=== PATIENT | female | born 1960 | race Two or more races ===

== ENCOUNTER 2024-04-29 14:48 | Outpatient (AMB) | payer OTHER, SELFPAY ==
--- NOTE | 2024-04-29 14:56 | MHC.OFFVIS ---
Vital Signs 04/29/24 15:11 Height 5 ft 4 in Weight 169 lb 12.095 oz BMI 29.1 BP 158/70 H Blood Pressure Location Rt brachial Position Sitting Pulse 86 Pulse Source Pulse Oximeter Pulse Oximetry (%) 99 Oxygen Delivery Method Room Air Intake Visit Reasons: Positive Cologuard-colonoscopy screening Intake Note: Relevant Flags or Indicators ? Requires Mold Technician? Luca Kearney presents in office today for a scheduled initial assessment. CC; Since last visit; labs ordered ? within the last ~2 mos via [facility]. Rx ordered ? no. Diagnostics/images ordered ? done (Cologuard, positive, in chart). Cardiovascular US within the last 3-4 mos per pt. Pt also reports kidney bx and thyroid bx. Pt also reports hx of iron infusions for anemia. Relevant GI Sx as reported per pt? ?Nausea ?Reflux ?Dysphagia / Painful Swallowing ?Fecal abnormalities oConstipation ?Abdominal Pain oUpper B/L, epigastric pain ?Bloating ?Hx of any recent surgeries? Pt denies any previous hx of colo. No other recent surgeries. ?Pertinent FMHx? Diabetes [facility] records available if necessary Mold Technician Required: No Allergies ondansetron [From Zofran] Allergy (Intermediate, Unverified 04/28/24 16:33) Unknown nausea medication Adverse Reaction (Unknown, Uncoded 04/29/24 15:09) Unknown HPI HPI Positive Cologuard-colonoscopy screening : Details: 63 year old?female with past medical history of non rheumatic aortic valve stenosis, CKD stage 4, migraine headaches, anemia, anxiety, diabetes, hypertension, cerebral artery aneurysm, fibromyalgia, multinodular goiter is here today for pre colonoscopy screening.? Patient was sent to us by her PCP.? ?Pt never had colonoscopy in the past. Patient recently had positive Cologuard. Patient is seeing renal and might be going for transplant. Reports frequent abdominal bloating and dyspepsia. Unable to take any PPIs due to her symptoms. Patient denies any gastrointestinal symptoms in the past or at present.? Denies any personal or family history of gastrointestinal disease, colon polyps, or CRC.? Denies history of difficulty with sedation or anesthesia in the past.? Negative for history of sleep apnea.? Denies any history of cardiac, pulmonary, or hepatic disease.?? No history of infectious? diseases like hepatitis A, B, C, HIV or tuberculosis.? Patient is currently on pantoprazole, however due to kidney disease patient should probably hold off on taking that. [facility] Medical History (Updated 05/16/24 @ 19:58 by Mary Villegas [facility]) delivery delivered Nonrheumatic aortic (valve) stenosis Anxiety Anemia CKD (chronic kidney disease), stage IV Diabetes mellitus Migraine without aura HTN (hypertension) Cerebral arterial aneurysm Multinodular goiter (nontoxic) Fibromyalgia Surgical History Other abnormal clinical finding History of cholecystectomy (~1998) Review of Systems Const Denies weight gain and Denies weight loss ENT Reports no additional complaints, Reports dysphagia (Occasional) and Denies odynophagia Card Reports no additional complaints Resp Reports no additional complaints GI Denies abdominal pain, Denies belching, Denies melena, Reports bloating, Denies change in bowel habits, Reports dysphagia (Occasional), Denies excessive flatus, Denies dyspepsia, Reports heartburn, Denies diarrhea, Reports loose stools, Reports nausea, Denies odynophagia and Denies vomiting Reports no additional complaints Musc Reports no additional complaints Neuro Reports no additional complaints Psych Reports no additional complaints Endo Reports no additional complaints Physical Exam Vital Signs: Last Vital Signs Pulse 86 04/29/24 15:11 BP 158/70 H 04/29/24 15:11 Pulse Ox 99 04/29/24 15:11 Oxygen Delivery Method Room Air 04/29/24 15:11 BMI result Body Mass Index 29.1 Const General: healthy appearing, no acute distress and well developed Nutritional Appearance: well nourished Orientation/consciousness: patient oriented x3 Resp Effort & Inspection: normal respiratory effort, able to speak in complete sentences, no tracheal deviation and symmetric chest movement Auscultation: clear to auscultation bilaterally Cardio Rate: regular rate GI Inspection: Yes normal to inspection and No distended Palpation (GI): Soft to palpation, not firm, nontender and No hepatosplenomegaly present Auscultation: normal bowel sounds General: Yes no CVA tenderness Back/Spine/Pelvis Back: no CVA tenderness Skin General skin exam: elasticity normal, turgor normal and dry skin Neuro General: patient oriented x3 Psych Appearance: grossly normal Mental Status: mental status grossly normal Assessment & Plan Assessment & Plan (1) Positive colorectal cancer screening using Cologuard test: Code(s): R19.5 - Other fecal abnormalities (2) CKD (chronic kidney disease), stage IV: Code(s): N18.4 - Chronic kidney disease, stage 4 (severe) Category: Medical (3) Screen for colon cancer: Code(s): Z12.11 - Encounter for screening for malignant neoplasm of colon Plan Patient denies any cardiac or respiratory symptoms.? Denies any issues with anesthesia in the past.? Denies any history of sleep apnea.? No history infectious diseases in the past or present.? Not on any anticoagulation therapy.? No family or personal history of colon cancer or polyps, recently was found to have positive Cologuard..? Patient denies melena, hematochezia, unintentional weight loss or ribbon like stools. Patient is on Lantus should take half of the prescribed dose 2 nights and 1 night before the procedure. Will send a message to her renal provider if Mag citrate is appropriate or if she will need to have different prep.? Discussed at length the pre-procedure,? prep, diet & medications as well as what to expect prior, during and after the procedure.?? Stressed the importance of good bowel prep.? Recommended the use of Vaseline or Calmoseptine OTC & baby wipes with bowel movements to promote comfort.? ?Patient verbalizes understanding and agrees to plan of care.? She was given the opportunity to ask questions and all questions answered.? We will see her after the procedure.? Medications: New magnesium citrate Drink one bottle at 17:00 and 2nd bottle at 22:00 296 mL PO ONCE 296 mL 1RF Z12.11 - Encounter for screening for malignant neoplasm of colon bisacodyl (Dulcolax (bisacodyl)) 10 mg (2 x 5 mg) PO BEDTIME 180 tabs 4RF Coding Level of Care Code New Pt Level 4 (29279) Diagnoses Positive colorectal cancer screening using Cologuard test R19.5 CKD (chronic kidney disease), stage IV N18.4 Screen for colon cancer Z12.11 Time Spent (min) 45 Comment 30 minutes spent with patient and additional 15 minutes spent reviewing her records
[2024-04-29 15:11] VITALS: BP 158/70; PULSE 86; O2SAT 99; BMI 29.1
== END 2024-04-29 15:49 | disposition home or self-care (01) ==
PROVIDERS: PCP Nurse Practitioner Primary Care; Visit Provider Nurse Practitioner Family
DX: R19.5 Other fecal abnormalities (principal); N18.4 Chronic kidney disease, stage 4 (severe); Z12.11 Encounter for screening for malignant neoplasm of colon
CPT/HCPCS: 99204

== ENCOUNTER → 2024-04-29 14:48 | Outpatient (BNVA) | payer OTHER, SELFPAY | PROVIDERS: PCP Nurse Practitioner Primary Care; Visit Provider Nurse Practitioner Family | DX: Z12.11 Encounter for screening for malignant neoplasm of colon (principal); R19.5 Other fecal abnormalities; N18.4 Chronic kidney disease, stage 4 (severe) | CPT/HCPCS: 99202 ==